=== PATIENT | female | born 1970 | race American Indian/Alaskan Native ===

== ENCOUNTER 2020-01-10 08:50 | Outpatient (CLI) | payer OTHER ==
--- NOTE | 2020-01-10 09:42 | XRay Report ---
LUMBAR SPINE 3 VIEWS INDICATION / CLINICAL INFORMATION: BACK PAIN. COMPARISON: None available. FINDINGS: VERTEBRAE: No acute fracture. No significant malalignment. DISC SPACES / FACET JOINTS:The disc spaces are preserved. Small osteophytes at multiple levels. Lower lumbar facet joint sclerosis. PARASPINAL SOFT TISSUES:No significant abnormality. ADDITIONAL FINDINGS: None. IMPRESSION: Mild degenerative disc disease and mild to moderate facet joint arthropathy. Signer Name: Anatoly Freeman MD Signed: 01/10/2020 9:38 AM Workstation Name: [id number]
--- NOTE | 2020-01-10 09:44 | XRay Report ---
THORACIC SPINE HISTORY: Pain. COMPARISON: None. TECHNIQUE: 2 view(s) of the thoracic spine obtained. FINDINGS: Vertebrae: Normal alignment. No fracture or significant abnormality. Disc Spaces:Moderate multilevel lower thoracic degenerative disc disease with anterior and lateral os teophytes. These are most prominent at T7-8 and T8-9. Paraspinous Soft Tissues:No significant abnormality. Additional findings: None. IMPRESSION: 1. Moderate lower thoracic degenerative disc disease. Signer Name: Anatoly Freeman MD Signed: 01/10/2020 9:40 AM Workstation Name: [id number]
== END 2020-01-10 08:51 | disposition home or self-care (01) ==
LOC: XRAY 08:50
PROVIDERS: ATTEND Internal Medicine
DX: M47.815 Spondylosis without myelopathy or radiculopathy, thoracolumbar region (principal); M25.78 Osteophyte, vertebrae
CPT/HCPCS: 72070; 72100